=== PATIENT | male | born 1970 ===

== ENCOUNTER 2018-06-18 22:39 | Emergency (ER) | payer OTHER ==
--- NOTE | 2018-06-18 23:07 | PDOC ---
History of Present Illness - General History Source: Patient Exam Limitations: No Limitations - History of Present Illness Initial Comments: 06/18/18 23:04 A portion of this note was documented by scribe services under my direction. I have reviewed the details of the note, within reason, and agree with the documentation. The case summary and management plan written by me. Assessment and plan: This is a 48-year-old male who comes in complaining of some twitching in his left thigh and a sharp pain in his groin. Patient was concerned because he had a accident about a year ago that resulted in his being wheelchair bound for several months. However patient has been ambulatory for the last 5 months without any difficulty patient denies any pain in his thigh or leg. Patient denies any swelling in his leg ankle or foot. Patient has no genetic predisposition to DVTs and there is no family history of DVTs. Patient has not had any recent travel or other risk factors for a DVT Patient was reassured that this is most likely secondary to his work where he does a lot of bending and lifting. Patient discharged for follow-up with his primary care doctor <Leo Shearer I - Last Filed: 06/18/18 23:00> - History of Present Illness Initial Comments: 06/18/18 23:16 The patient is a 48 year old male, with a significant past medical history of bilateral lower extremity fractures and achilles tendon tear requiring repair ( 1 year ago), who presents to the emergency department with left thigh tremor and left groin pain today. He states he was concerned for DVT because after his multiple orthopedic surgeries last year he was told he was high risk for DVT. He denies any swelling to the extremity. He denies any other complaints of pain. The patient denies chest pain, shortness of breath, headache and dizziness. The patient denies fever, chills, nausea, vomit, diarrhea and constipation. The patient denies dysuria, frequency, urgency and hematuria. PAST MEDICAL HISTORY: no significant history PAST SURGICAL HISTORY: no significant history FAMILY HISTORY: no pertinent history SOCIAL HISTORY: Pt lives with family and is employed. MEDICATIONS: reviewed ALLERGIES: As per nursing notes Adult ROS General: No fevers or chills, no weakness, no weight loss HEENT: No change in vision. No sore throat,. No ear pain CardioVascular: No chest pain or shortness of breath Respiratory:No cough, or wheezing. Gastrointestinal: no nausea, vomiting, diarrhea or constipation, No rectal bleeding Genitourinary: No dysuria, hematuria, or frequency Musculoskeletal: (+) left groin pain. left thigh tremor. No joint or muscle pain or swelling Neurologic: No headache, vertigo, dizziness or loss of consciousness Psychiatric: nor depression Skin: No rashes or easy bruising Endocrine: no increased thirst or abnormal weight change Allergic: no skin or latex allergy All other systems reviewed and normal Basic PE GENERAL: The patient is awake, alert, and fully oriented, in no acute distress. HEAD: Normal with no signs of trauma. EYES: Pupils equal, round and reactive to light, extraocular movements intact, sclera anicteric, conjunctiva clear. EXTREMITIES: Normal range of motion, no edema. NEUROLOGICAL: Normal speech, normal gait. PSYCH: Normal mood, normal affect. SKIN: Warm, Dry, normal turgor, no rashes or lesions noted. <Tahmina Thomas - Last Filed: 06/18/18 23:20> - General Chief Complaint: Pain, Acute Stated Complaint: PAIN IN GROIN Time Seen by Provider: 06/18/18 22:44 Past History <Leo Shearer I - Last Filed: 06/18/18 23:00> <Tahmina Thomas - Last Filed: 06/18/18 23:20> - Past Medical History Allergies/Adverse Reactions: Allergies Allergy/AdvReac Type Severity Reaction Status Date / Time PEANUTS Allergy Uncoded 06/18/18 22:42 Home Medications: Ambulatory Orders Enalapril Maleate [Vasotec] 20 mg PO DAILY 06/18/18 Metformin HCl [Metformin HCl ER] 1,000 mg PO DAILY 06/18/18 *DC/Admit/Observation/Transfer - Discharge Dispostion Decision to Admit order: No <Leo Shearer I - Last Filed: 06/18/18 23:00> - Attestations Scribe Attestion: 06/18/18 23:20 Documentation prepared by Tahmina Thomas, acting as medical attendant for Leo Shearer MD <Tahmina Thomas - Last Filed: 06/18/18 23:20> Diagnosis at time of Disposition: Muscle twitch - Discharge Dispostion Disposition: HOME Condition at time of disposition: Stable - Patient Instructions Additional Instructions: take Tylenol or Motrin as needed for pain. Get a multivitamin and take one a day. Return to the emergency department immediately with ANY new, persistent or worsening symptoms. Continue any medications as previously prescribed by your physician. You should follow up with your primary doctor as soon as possible regarding today's emergency department visit. . Please make sure your doctor reviews the results of your emergency evaluation. Thank you for coming to the Emergency Department today for your care. It was a pleasure to see you today. Please note that your evaluation is INCOMPLETE until you follow-up with your doctor.
[2018-06-18 23:28] VITALS: BP 152/98; PULSE 86; TEMP 98.2; BMI 30.3
== END 2018-06-18 23:32 | disposition home or self-care (01) ==
LOC: FER 22:39
DX: R25.3 Fasciculation (principal)
CPT/HCPCS: 99281-25